=== PATIENT | male | born 1950 ===

== ENCOUNTER 2024-01-23 06:35 | Day surgery (SDC) | payer MEDICARE ==
[2024-01-18 16:19] VITALS: BMI 26.6
[2024-01-23] MEDS: LACTATED RINGERS 1,000 ML IV SCH (06:51)
[2024-01-23 06:57] VITALS: TEMP 97.6
[2024-01-23] MEDS ORDERED: PROPOFOL 10 MG/ML 20 ML VIAL IV ONE (07:27)
--- NOTE | 2024-01-23 08:01 | P.PCN ---
Date of Procedure: 01/23/24 Procedure(s) Performed: BRIEF HISTORY: Patient is a 73-year-old pleasant white male scheduled for an elective colonoscopy as a part of screening for colon cancer. PROCEDURE PERFORMED: Colonoscopy with snare polypectomy and Endo Clip placement. PREOPERATIVE DIAGNOSIS: Screening for colon cancer. IV sedation per Anesthesia. PROCEDURE: After informed consent was obtained, the patient, was brought into the endoscopy unit. IV sedation was administered by Anesthesia under continuous monitoring. Digital rectal examination was normal. Initially the Olympus CF-160 flexible video colonoscope was then inserted in the rectum, gradually advanced into the cecum without any difficulty. Careful examination was performed as the scope was gradually being withdrawn. Ileocecal valve and the appendiceal orifice were visualized and appeared normal. Prep was excellent. Mucosa of the cecum, and a 1 cm broad-based polyp that was removed by snare polypectomy. On the ileocecal valve there was a 3 mm and 1 m polyp removed by snare polypectomy. In the ascending colon there was a 1 cm and 1.2 cm polyps removed by snare polypectomy. In the descending colon at 50 cm from the anal verge there was a 3 cm broad-based polyp that was completely removed by piecemeal snare polypectomy followed by Endo Clip placement. In the descending colon at 45 cm from anal was there was another 1.5 cm broad-based polyp removed by snare polypectomy. Scattered left sided diverticulosis seen. Rest of the; and rectum appeared normal. Retroflexion was performed in the rectum and no lesions were seen. The patient tolerated the procedure well. IMPRESSION: 1 cm broad-based cecal polyp status post polypectomy 3 mm and 1 cm ileocecal valve polyp status post polypectomy 1.2 cm and 1 cm ascending colon polyp status post polypectomy 3 cm broad-based proximal descending colon polyp at 50 cm from anal was status post polypectomy followed by Endo Clip placement. 1.5 cm broad-based distal descending colon polyp at 45 cm from anal was status post polypectomy Scattered sigmoid diverticulosis RECOMMENDATIONS: Findings of this examination were discussed with the patient as well as his family. He was advised to follow with the biopsy results. he'll be seen in office in one week. If the biopsies reveal adenoma he can have a repeat colonoscopy in 1 year..
[2024-01-23 08:10] VITALS: RESP 16
[2024-01-23 08:46] VITALS: BP 132/70; PULSE 56
== END 2024-01-23 08:45 | disposition home or self-care (01) ==
LOC: ORWHC2ENDO 06:35
PROVIDERS: ATTEND Internal Medicine Gastroenterology
DX: Z12.11 Encounter for screening for malignant neoplasm of colon (principal); D12.0 Benign neoplasm of cecum; D12.2 Benign neoplasm of ascending colon; D12.4 Benign neoplasm of descending colon; K57.30 Diverticulosis of large intestine without perforation or abscess without bleeding; F17.210 Nicotine dependence, cigarettes, uncomplicated; M19.90 Unspecified osteoarthritis, unspecified site; Z79.899 Other long term (current) drug therapy; Z98.890 Other specified postprocedural states
CPT/HCPCS: 88305; 45382; 45385; J2704

== ENCOUNTER 2024-05-14 08:25 | Day surgery (SDC) | payer MEDICARE ==
[2024-05-10 10:43] VITALS: BMI 26.6
[2024-05-14] MEDS: IV FLUID CONTINUATION 1,000 ML IV ONE ×2 (09:04→09:25)
[2024-05-14 09:07] VITALS: TEMP 97.3
[2024-05-14] MEDS: LACTATED RINGERS 1,000 ML IV SCH (09:13)
[2024-05-14] MEDS ORDERED: LIDOCAINE 1% INJ 10MG/ML (20 ML MDV) ONE (10:01)
[2024-05-14] MEDS ORDERED: PROPOFOL 10 MG/ML 20 ML VIAL IV ONE (10:01)
--- NOTE | 2024-05-14 10:30 | P.PCN ---
Date of Procedure: 05/14/24 Procedure(s) Performed: BRIEF HISTORY: Patient is a 73-year-old pleasant white male scheduled for an elective colonoscopy as a part of this evidence of prior history of colon polyps. His last colonoscopy was in January of this year and was noted to have multiple colon polyps the largest measuring 3 cm in size which is in the proximal descending colon that was removed completely but the biopsy revealed high-grade dysplasia. He had scheduled for a surveillance colonoscopy today. PROCEDURE PERFORMED: Colonoscopy with snare polypectomy. 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 IV sedation per Anesthesia. PROCEDURE: After informed consent was obtained, the patient, was brought into the endoscopy unit. IV sedation was administered by Anesthesia under continuous monitoring. Digital rectal examination was normal. Initially the Olympus CF-160 flexible video colonoscope was then inserted in the rectum, gradually advanced into the cecum without any difficulty. Careful examination was performed as the scope was gradually being withdrawn. Ileocecal valve and the appendiceal orifice were visualized and appeared normal. Prep was excellent. Mucosa of the cecum 5 to 6 mm ascending polyp that was removed by cold snare polypectomy. Rest of the, ascending colon, transverse colon, appeared normal. In the descending colon from the centimeters from the anal verge there was a 7 mm descending polyp identified that was removed by snare polypectomy. Rest of the descending colon, sigmoid colon, and rectum appeared normal. Retroflexion was performed in the rectum and no lesions were seen. Scattered sigmoid diverticulosis the patient tolerated the procedure well. IMPRESSION: 5 to 6 mm residual cecal polyp status post snare polypectomy 7 mm residual proximal sigmoid colon polyp status post snare polypectomy Scattered sigmoid diverticulosis. RECOMMENDATIONS: Findings of this examination were discussed with the patient/family. He was advised to follow-up with the biopsy results. Recommended repeat colonoscopy in 1 year..
[2024-05-14 10:53] VITALS: BP 147/79; PULSE 61; RESP 18
== END 2024-05-14 11:07 | disposition home or self-care (01) ==
LOC: ORWHC2ENDO 08:25
PROVIDERS: ATTEND Internal Medicine Gastroenterology
DX: Z12.11 Encounter for screening for malignant neoplasm of colon (principal); D12.0 Benign neoplasm of cecum; D12.4 Benign neoplasm of descending colon; K57.30 Diverticulosis of large intestine without perforation or abscess without bleeding; G47.33 Obstructive sleep apnea (adult) (pediatric); Z86.010 Personal history of colon polyps; Z85.828 Personal history of other malignant neoplasm of skin; Z98.890 Other specified postprocedural states
CPT/HCPCS: 45385; J2001; J2704; 88305

== ENCOUNTER → 2025-05-14 | Outpatient (CLI) | payer MEDICARE ==
--- NOTE | 2025-05-14 09:19 | US ---
EXAMINATION TYPE: US venous doppler duplex LE RT DATE OF EXAM: 05/14/2025 9:01 AM COMPARISON: NONE CLINICAL INDICATION: Male, 74 years old with history of R22.41 LOCALIZED SWELLING, MASS AND LUMP, RIG HT LO; Swelling per , tech saw no difference, no injury, no h/o dvt TECHNIQUE: The lower extremity deep venous system is examined utilizing real time linear array sonog carmella with graded compression, color doppler sonography, and spectral doppler. SIDE PERFORMED: Right FINDINGS: VESSELS IMAGED: Common Femoral Vein Deep Femoral Vein Greater Saphenous Vein * Femoral Vein Popliteal Vein Small Saphenous Vein * Proximal Calf Veins (* superficial vessels) Right Leg: Negative for DVT, Color Doppler imaging shows patency of the vessels. Spectral waveforms are within normal limits. IMPRESSION: No evidence of deep vein thrombosis of the right lower extremity. [facility], , 05/14/2025 9:17 AM
== END | disposition home or self-care (01) ==
LOC: RADUSWWP 08:33
PROVIDERS: ATTEND Family Medicine
DX: R22.41 Localized swelling, mass and lump, right lower limb (principal)